=== PATIENT | female | born 1995 | race Caucasian/White ===

== ENCOUNTER → 2019-05-04 | Outpatient (REF) | payer OTHER | LOC: M LAB REF 11:21 | PROVIDERS: ATTEND Advanced Practice Midwife | DX: Z12.4 Encounter for screening for malignant neoplasm of cervix (principal) ==

== ENCOUNTER 2019-06-01 10:33 | Emergency (ER) | payer OTHER ==
[~2019-06-01] VITALS: Ht 157.5 cm; Wt 54.7 kg
[2019-06-01 11:23] LABS: BASO % 0.4 % (0.0-1.0); EOS # 0.4 10^3/uL (0.0-0.50); EOS % 4.5 % (0.0-3.0); HEMATOCRIT 38.5 % (36.0-47.0); HEMOGLOBIN 13.2 g/dl (12.0-15.5); LYMPH # 2.8 10^3/uL (1.5-6.5); LYMPH % 34.3 % (24.0-44.0); MEAN CORPUSCULAR HEMOGLOBIN 30.4 pg (27.0-33.0); MEAN CORPUSCULAR HGB CONC 34.3 g/dl (32.0-36.5); MEAN CORPUSCULAR VOLUME 88.7 fl (80.0-96.0); MONO # 0.5 10^3/uL (0.0-0.8); MONO % 6.4 % (0.0-5.0); NEUTROPHILS # 4.4 10^3/uL (1.8-7.7); NEUTROPHILS % 54.2 % (36.0-66.0); PLATELET COUNT, AUTOMATED 232 10^3/uL (150-450); RED BLOOD COUNT 4.34 10^6/uL (4.00-5.40); WHITE BLOOD COUNT 8.1 10^3/uL (4.0-10.0)
[2019-06-01] MEDS ORDERED: NS 1,000 ML IV ONE (14:30)
[2019-06-01] MEDS ORDERED: KEFL500C17 PO (15:06)
[2019-06-01 15:46] VITALS: BP 117/69
--- NOTE | 2019-06-01 19:34 | REP ---
FIRST TRIMESTER ULTRASOUND: Real-time sonographic evaluation of the gravid uterus is performed utilizing transabdominal and endovaginal technique. There is a single living intrauterine gestation. The estimated gestational age is 6 weeks based on a crown-rump length of 3 mm. EDC 01/25/2020. heart 96 beats per minute. Subchorionic hemorrhage is noted measuring 2.2 x 1.4 x 1.1 cm. Cystic structure in the right ovary probably represents a corpus luteum, complex measuring 2.4 cm maximally. There is no torsion. Moderate free fluid is seen right greater than left. Electronically Signed by Tam Monte MD 06/04/2019 11:30 A
== END 2019-06-01 16:06 | disposition home or self-care (01) ==
LOC: M ED 10:33
DX: O20.8 Other hemorrhage in early pregnancy (principal); O23.41 Unspecified infection of urinary tract in pregnancy, first trimester; O34.81 Maternal care for other abnormalities of pelvic organs, first trimester; N83.201 Unspecified ovarian cyst, right side; Z3A.01 Less than 8 weeks gestation of pregnancy

== ENCOUNTER → 2019-06-05 | Outpatient (CLI) | payer OTHER ==
[~2019-06-05] MED LIST: KEFL500C17 PO
--- NOTE | 2019-06-05 15:55 | REP ---
REASON: Subchorionic hemorrhage. COMPARISON: 06/01/2012 which showed a 2.2 x 1.4 x 1.1 cm sized subchorionic hemorrhage. A 2.4 cm sized corpus luteum cyst was also seen on the right. Transvesical and transvaginal imaging was obtained. Today's examination shows a single living intrauterine gestation the mean crown-rump length measurement of which is consistent with a 5 week 6 day gestational age. Doppler interrogation of the heart shows a heart rate of 122 beats per minute. Once again, decreased echoes are seen adjacent to the developing chorion today measuring 1.9 x 1.4 x 2.7 cm. Evaluation of the maternal adnexal spaces shows no abnormalities or significant changes from the prior exam. A corpus luteum cyst is again seen. IMPRESSION: Early OB ultrasound and subchorionic hemorrhage with right corpus luteum cyst as described above. Electronically Signed by Cristóbal Zambrano DO 06/05/2019 05:10 P
== END ==
LOC: M RAD 10:14
PROVIDERS: ATTEND Advanced Practice Midwife
DX: Z34.81 Encounter for supervision of other normal pregnancy, first trimester (principal)

== ENCOUNTER → 2019-06-18 | Outpatient (REF) | payer OTHER | LOC: M LAB REF 12:50 | PROVIDERS: ATTEND Physician Assistant | DX: R30.0 Dysuria (principal) ==

== ENCOUNTER → 2019-06-29 | Outpatient (REF) | payer OTHER | LOC: M LAB REF 13:06 | PROVIDERS: ATTEND Advanced Practice Midwife | DX: R30.0 Dysuria (principal) ==

== ENCOUNTER → 2019-07-04 | Outpatient (CLI) | payer OTHER ==
[2019-07-04 13:41] LABS: BASO % 0.2 % (0.0-1.0); EOS # 0.1 10^3/uL (0.0-0.5); EOS % 1.7 % (0.0-3.0); HEMATOCRIT 37.2 % (36.0-47.0); HEMOGLOBIN 12.7 g/dl (12.0-15.5); LYMPH # 2.7 10^3/uL (1.5-5.0); MEAN CORPUSCULAR HEMOGLOBIN 29.4 pg (27.0-33.0); MEAN CORPUSCULAR HGB CONC 34.1 g/dl (32.0-36.5); MEAN CORPUSCULAR VOLUME 86.1 fl (80.0-96.0); MONO # 0.7 10^3/uL (0.0-0.8); MONO % 7.9 % (0.0-5.0); NEUTROPHILS # 4.9 10^3/uL (1.5-8.5); PLATELET COUNT, AUTOMATED 267 10^3/uL (150-450); RED BLOOD COUNT 4.32 10^6/uL (4.00-5.40); WHITE BLOOD COUNT 8.4 10^3/uL (4.0-10.0)
[2019-07-04 14:35] LABS: HEPATITIS C VIRUS ABY INDEX 0.1 INDEX (<0.8); HIV 1&2 SCREEN CENTAUR NEGATIVE (NEGATIVE); RUBELLA IgG QUALITATIVE IMMUNE (IMMUNE)
[2019-07-04 16:35] LABS: CHLAMYDIA DNA AMPLIFICATION NEGATIVE (NEGATIVE); GC DNA AMPLIFICATION NEGATIVE (NEGATIVE)
== END ==
LOC: M SMT 09:22
PROVIDERS: ATTEND Advanced Practice Midwife
DX: Z34.81 Encounter for supervision of other normal pregnancy, first trimester (principal); Z36.89 Encounter for other specified antenatal screening

== ENCOUNTER → 2019-07-09 | Outpatient (CLI) | payer OTHER | LOC: M SMT 10:24 | PROVIDERS: ATTEND Advanced Practice Midwife | DX: Z34.81 Encounter for supervision of other normal pregnancy, first trimester (principal); Z3A.00 Weeks of gestation of pregnancy not specified ==

== ENCOUNTER → 2019-07-25 | Outpatient (REF) | payer OTHER | LOC: M LAB REF 17:05 | PROVIDERS: ATTEND Advanced Practice Midwife | DX: Z34.82 Encounter for supervision of other normal pregnancy, second trimester (principal); Z3A.00 Weeks of gestation of pregnancy not specified ==

== ENCOUNTER → 2019-08-31 | Outpatient (CLI) | payer OTHER ==
--- NOTE | 2019-08-31 08:30 | REP ---
Obstetric ultrasound for anatomy: There is a single intrauterine gestation in a vertex presentation. There is movement and cardiac activity. The heart rate is 150 beats per minute. The placenta is posterior. There is no previa or abruptio. The placenta is grade zero. The amniotic fluid volume subjectively is normal. The cervix measures 3.7 cm length. Gestational age by today's ultrasound is 19 weeks 3 days/ANDREW 01/22/2020. Gestational age by the first ultrasound is 19-week 0 days/ANDREW 01/25/2020. Gestational age by LMP is 18 weeks 2 days/ANDREW 01/30/2020. weight is 279 grams/0 pounds, 9 ounces. This is the 82nd percentile for 18 weeks 2 days. The following anatomic structures are identified and are unremarkable: Cranium, choroid plexus, cavum septum pellucidum, cerebellum, facial profile, face, upper lip, four-chamber heart, cardiac right and left ventricular outflow tracts, diaphragm, stomach, cord insertion, three-vessel cord, kidneys, bladder, spine and upper lower extremities. No anomalies are identified. Electronically Signed by Tam Walker MD 08/31/2019 08:22 A
== END ==
LOC: M RAD 07:05
PROVIDERS: ATTEND Advanced Practice Midwife
DX: Z34.02 Encounter for supervision of normal first pregnancy, second trimester (principal); Z3A.18 18 weeks gestation of pregnancy

== ENCOUNTER 2020-11-12 12:39 | Emergency (ER) | payer OTHER ==
[~2020-11-12] VITALS: Ht 157.5 cm; Wt 57.3 kg
[2020-11-12] MEDS ORDERED: PRENTAB53 PO (12:47)
--- OUTSIDE RECORDS SUMMARY | 2020-11-12 12:47 | CCD ---
Author Author [facility] Address Unknown Phone Unavailable Support Name Relationship Address Phone UE Next Of Kin Unknown Unavailable SANDRA CAROLINA Next Of Kin [address] [place], [place] [id number] Re-disclosure Warning The records that you are about to access may contain information from federally-assisted alcohol or drug abuse programs. If such information is present, then the following federally mandated warning applies: This information has been disclosed to you from records protected by federal confidentiality rules (42 CFR part 2). The federal rules prohibit you from making any further disclosure of this information unless further disclosure is expressly permitted by the written consent of the person to whom it pertains or as otherwise permitted by 42 CFR part 2. A general authorization for the release of medical or other information is NOT sufficient for this purpose. The Federal rules restrict any use of the information to criminally investigate or prosecute any alcohol or drug abuse patient.The records that you are about to access may contain highly sensitive health information, the redisclosure of which is protected by Article 27-F of the [facility] Public Health law. If you continue you may have access to information: Regarding HIV / AIDS; Provided by facilities licensed or operated by the [facility] Office of Mental Health; or Provided by the [facility] Office for People With Developmental Disabilities. If such information is present, then the following [facility] mandated warning applies: This information has been disclosed to you from confidential records which are protected by state law. State law prohibits you from making any further disclosure of this information without the specific written consent of the person to whom it pertains, or as otherwise permitted by law. Any unauthorized further disclosure in violation of state law may result in a fine or fpc sentence or both. A general authorization for the release of medical or other information is NOT sufficient authorization for further disc losure. Family History Family Member Name Family Member Gender Family Member Status Date o f Status Description Data Source(s) Unknown Male Problem [facility] ([facility]) Encounters Encounter Providers Location Date Indications Data Source(s ) Outpatient 09/14/2019 10:19:[address] [facility] Rad[facility] Insurance Providers Payer name Policy type / Coverage type Policy ID Covered green party ID Covered green party's relationship to danielle Policy Danielle Plan Information [facility] [id number] SP [id number] [facility] O [id number] S [id number] [facility] [id number] Usp AT [facility] Health Maintenance Organization (HMO) [id number] [facility] [id number]
--- OUTSIDE RECORDS SUMMARY | 2020-11-12 13:15 | CCD ---
Author Author [facility] Address Unknown Phone Unavailable Support Name Relationship Address Phone UE Next Of Kin Unknown Unavailable SANDRA CAROLINA Next Of Kin [address] [place], [place] [phone] Re-disclosure Warning The records that you are [...] is protected by Article 27-F of the [facility] Public Health law. If you continue you may have access to information: Regarding HIV / AIDS; Provided by facilities licensed or operated by the [facility] Office of Mental Health; or Provided by the [facility] Office for People With Developmental Disabilities. If such information is present, then the following [facility] mandated warning applies: This information has been [...] law may result in a fine or chcf sentence or both. A general authorization for the release of medical or other information is NOT sufficient authorization for further disc losure. Family History Family Member Name Family Member Gender Family Member Status Date o f Status Description Data Source(s) Unknown Male Problem [facility] ([facility]) Encounters Encounter Providers Location Date Indications Data Source(s ) Outpatient 09/14/2019 10:19:00 PM [facility] Insurance Providers Payer name Policy type / Coverage type Policy ID Covered alliance party ID Covered alliance party's relationship to danielle Policy Danielle Plan Information [facility] [id number] [facility] [id number] [facility] [id number] [facility] [id number] [facility] [id number] [facility] [id number] S [id number] [facility] [id number] [facility] Health Maintenance Organization (HMO) [id number] [facility] [id number]
[2020-11-12 13:42] LABS: BASO % 0.3 % (0.0-1.0); EOS # 0.3 10^3/uL (0.0-0.5); EOS % 3.7 % (0.0-3.0); HEMATOCRIT 37.3 % (36.0-47.0); HEMOGLOBIN 12.6 g/dl (12.0-15.5); LYMPH # 2.9 10^3/uL (1.5-5.0); LYMPH % 31.4 % (24.0-44.0); MEAN CORPUSCULAR HEMOGLOBIN 29.3 pg (27.0-33.0); MEAN CORPUSCULAR HGB CONC 33.8 g/dl (32.0-36.5); MEAN CORPUSCULAR VOLUME 86.7 fl (80.0-96.0); MONO # 0.6 10^3/uL (0.0-0.8); MONO % 6.7 % (0.0-5.0); NEUTROPHILS # 5.3 10^3/uL (1.5-8.5); NEUTROPHILS % 57.7 % (36.0-66.0); PLATELET COUNT, AUTOMATED 263 10^3/uL (150-450); WHITE BLOOD COUNT 9.2 10^3/uL (4.0-10.0)
--- NOTE | 2020-11-12 14:18 | REP ---
INDICATION: cramping, 6 wks . COMPARISON: None. TECHNIQUE: Transabdominal and transvaginal scanning. FINDINGS: There is a gestational sac in the uterus with a small yolk sac. An embryonic pole is felt to be visible 3 mm in greatest length. This would correspond with a 5 weeks 6 days gestation. No cardiac activity could be detected although it may be too early to rely on this sign. No free fluid is seen. There is a 2.7 cm hypoechoic area in the maternal right ovary consistent with corpus luteum. Right ovary measures 3.0 x 2.3 x 3.7 cm. Left ovarian dimensions are 2.0 x 3.1 x 2.4 cm. IMPRESSION: Intrauterine gestation containing a yolk sac and a tiny embryonic pole. No observable cardiac activity although embryonic pole is less than 6 weeks size. viability cannot be confirmed. Clinical and sonographic follow-up are recommended. Five weeks 6 days size by crown-rump length, ANDREW July 06, 2021. <Electronically signed by Wenceslao Mcelroy > 11/12/20 [id number]
[2020-11-12 15:01] VITALS: BP 125/68
== END 2020-11-12 15:03 | disposition home or self-care (01) ==
LOC: M ED 12:39
DX: O26.899 Other specified pregnancy related conditions, unspecified trimester (principal); R10.2 Pelvic and perineal pain; M54.5 Low back pain; Z3A.01 Less than 8 weeks gestation of pregnancy; Z79.899 Other long term (current) drug therapy

== ENCOUNTER 2021-04-11 13:06 | Inpatient (IN) | payer OTHER ==
[2021-04-11] VITALS (8 sets, daily range): BP systolic 90–114; BP diastolic 46–55
[~2021-04-11] VITALS: Ht 157.5 cm; Wt 68.3 kg
[~2021-04-11 13:06] MED LIST changes: +PRENTAB53 PO
[2021-04-11] MEDS ORDERED: LR 1,000 ML IV ONE (13:50)
[2021-04-11] MEDS ORDERED: LR 1,000 ML IV SCH ×2 (13:50→18:20)
[2021-04-11 14:27] LABS: HEMOGLOBIN 11.3 g/dl (12.0-15.5); MEAN CORPUSCULAR HEMOGLOBIN 30.5 pg (27.0-33.0); MEAN CORPUSCULAR HGB CONC 34.2 g/dl (32.0-36.5); MEAN CORPUSCULAR VOLUME 89.2 fl (80.0-96.0); PLATELET COUNT, AUTOMATED 236 10^3/uL (150-450); WHITE BLOOD COUNT 17.3 10^3/uL (4.0-10.0)
[2021-04-11 14:57] LABS: ALBUMIN 2.7 GM/DL (3.2-5.2); ALT/SGPT 18 U/L (12-78); BILIRUBIN,TOTAL 0.4 MG/DL (0.2-1.0); BLOOD UREA NITROGEN 10 MG/DL (7-18); CALCIUM LEVEL 8.7 MG/DL (8.5-10.1); CARBON DIOXIDE LEVEL 23 MEQ/L (21-32); CHLORIDE LEVEL 103 MEQ/L (98-107); CREATININE FOR GFR 0.43 MG/DL (0.55-1.30); GLOMERULAR FILTRATION RATE > 60.0 (>60); GLUCOSE, FASTING 75 MG/DL (70-100); POTASSIUM SERUM 3.4 MEQ/L (3.5-5.1); SODIUM LEVEL 135 MEQ/L (136-145); TOTAL PROTEIN 6.4 GM/DL (6.4-8.2)
--- NOTE | 2021-04-11 15:23 | REP ---
INDICATION: RLQ pain. Please assess appendix. .. COMPARISON: None. TECHNIQUE: Right lower quadrant ultrasound assess for appendicitis FINDINGS: Ultrasonographic evaluation of the right lower quadrant fail to identify the appendix. There is no evidence of free fluid. IMPRESSION: Acute appendicitis can not be ruled out. The appendix was not visualized. <Electronically signed by Cristóbal Zambrano > 04/11/21 [id number]
--- NOTE | 2021-04-11 15:28 | REP ---
INDICATION: RAMIRO, placenta location, cervical length.. COMPARISON: None. TECHNIQUE: Transabdominal scanning FINDINGS: Multiple ultrasonographic images of the gravid uterus shows a single living intrauterine gestation in the cephalic presentation. Doppler interrogation of the heart shows a heart rate of 169 beats per minute. The subjective amniotic fluid volume is within normal limits. The calculated amniotic fluid index is 17.0. Doppler interrogation of the umbilical artery shows an AB ratio of 2.78. The cervix measures 3.7 cm in length and is closed. The placenta is anterior and not low-lying. IMPRESSION: Limited OB ultrasound as described above. <Electronically signed by Cristóbal Zambrano > 04/11/21 [id number]
[2021-04-11 16:02] LABS: CHLAMYDIA DNA AMPLIFICATION NEGATIVE (NEGATIVE); GC DNA AMPLIFICATION NEGATIVE (NEGATIVE)
[2021-04-11] MEDS: NS 1,000 ML IV SCH (18:46)
[2021-04-11] MEDS: ACETAMINOPHEN 500 MG TAB PO PRN (18:46)
--- NOTE | 2021-04-11 18:56 | HPEPDOC ---
Obstetrical History & Physical General Date of Admission History of Present Illness 25 yo at 27+5 weeks gestation presented to L&D today with the complaint of lower pelvic pain, back pain, nausea, and anorexia. She reports symptoms just started this AM. She was in her usual state of health yesterday. She denies any recent travel, fevers/chills, SOB, chest pain. She does endorse urinary frequency though she is unsure whether this is simply related to being . She denies any vaginal bleeding or leakage of fluid. She said she had heavier discharge a week ago but this has since resolved. She endorses fe eling movement. Chief Complaint: Contractions, pre-term Information Provided By: Patient Age: 25 : 2 Term: 1 Pre-term: 0 Abortions: 0 Livin Care Care: Good Care Dating Final EDC: Jul 06, 2021 Final EDC for Daily Update: Jul 06, 2021 Final EDC by: LMP (LMP of [id number] set ANDREW of [id number]) Antepartum Course Diagnos(e)s Varicella non immune GDMA1 last GBS in urine first trimester s/p treatment Past Medical History Past Obstetrical History : Past Obstetrical History: Multigravida (G1 - at term in Jan 2020) Type of Delivery: Spontaneous Vaginal Del. 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 History: No pertinent history Past Medical History Surgical History: Denies/None Family History Significant Family History: No pertinent family hx Social History Marital Status: Family situation: Spouse/partner home Psychosocial History: No pertinent psych hx * Smoker: non-smoker Alcohol: Denies Drugs: denies Imunizations Tdap status: needs Influenza Status: needs Allergies Coded Allergies: Apricot (Verified Adverse Reaction, Mild, diarrhea, 04/11/21) Medications Scheduled Vit,Calc76/Iron/Folic (Prenatabs Rx Tablet) 1 Each Tablet, 1 TAB PO DAILY Physical Examination Physical Examination Chaperoned by L&D RN GENERAL: Alert and oriented times three. ABDOMEN: Gravid. No fundal tenderness. Tenderness to palpation in lower quadrants, especially in RLQ. There is some rebound tenderness and guarding. FETUS: Is vertex (VTX) by Lexa's and formal TAUS. HEART RATE: Tachycardic in the 110s. Regular rhythm. LUNGS: Clear to auscultation (CTA). EXTREMITIES: No edema. No clonus. PELVIC: Normal external genitalia. Speculum inserted into the vagina. No foul odor. Scant, physiologic discharge. Negative pooling. Negative leak with valsalva. No herpetic lesions on cervix or on vagina. No lesions anywhere. Cervix: cl/thick/high, posterior to digital exam and unchanged approximately 4 hours later. Vital Signs/I&O Vital Signs Date Time Temp Pulse Resp B/P (MAP) Pulse Ox O2 Delivery O2 Flow Rate FiO2 04/11/21 15:41 100.5 113 20 114/54 (74) 04/11/21 13:26 97 Laboratory Data 24H LABS Laboratory Tests 2 04/11/21 14:06: Chlamydia trachomatis DNA ([facility]) NEGATIVE, Neisseria gonorrhoeae DNA ([facility]) NEGATIVE 04/11/21 14:07: Nucleated Red Blood Cells % (auto) 0.0, Urine Color YELLOW, Urine Appearance LISA UDYH, Urine pH 9.0, Urine Specific [place] 1.014, Urine Protein NEGATIVE, Urine Glucose (UA) NEGATIVE, Urine Ketones NEGATIVE, Urine Blood NEGATIVE, Urine Nitrite NEGATIVE, Urine Bilirubin NEGATIVE, Urine Urobilinogen 0.2, Urine Leukocyte Esterase NEGATIVE, Urine WBC (Auto) 1, Urine RBC (Auto) 0, Urine Hyaline Casts (Auto) 0, Urine Bacteria (Auto) 1+H, Urine Squamous Epithelial Cells 0, Urine Amorphous Sediment SMALLH, Urine Mucus (Auto) SMALL, Urine Sperm (Auto) , Anion Gap 9, Glomerular Filtration Rate > 60.0, Calcium Level 8.7, Total Bilirubin 0.4, Aspartate Amino Transf (AST/SGOT) 19, Alanine Aminotransferase (ALT/SGPT) 18, Alkaline Phosphatase 76, Total Protein 6.4, Albumin 2.7L, Albumin/Globulin Ratio 0.7L, Coronavirus (COVID-19)(PCR) NEGATIVE CBC/BMP Laboratory Tests 04/11/21 14:07 Microbiology Microbiology 04/11/21 Blood Culture, Received Pending 04/11/21 Urine Culture, Received Pending Urine Culture: Other (50,000 - 100,000 mixed luan with 7,000 cfu of GBS) Pertinent Laboratoy Data Blood Type: B+ RBC Antibody Screen: Negative HIV: Negative Hepatitis B: Negative Hepatitis C: Unknown Rapid Plasma Reagin: Nonreactive Rubella: Immune Varicella: Nonreactive Chlamydia/Gonorrhea: Negative Group B Streptococcus: Positive (7,000 cfu GBS in urine in Nov 2020) Quad Screen Test: Declined Cystic Fibrosis: Declined Glucose Tolerance Test: 134 (early 1hr GTT 134) Anatomy Ultrasound Ultrasound Date: Feb 17, 2021 Placenta Location: Anterior Normal Anatomy: Yes Placenta Previa: No Vaginal Examination Dilation: None Effacement: 30% Cervical Consistency: Firm Cervical Position: Posterior Presentation: Cephalic presentation Position: Vertex (occiput) Assessment Heart Rate (FHR): 155 Variability: Moderate Accelerations: Positive Decelerations: None Tocometer Contractions: Yes Frequency: regular Assessment/Plan Assessment 25 yo at 27+5 weeks gestation presented to L&D with pelvic pain, back pain, contractions, nausea, and anorexia. Noted to have a fever upon arrival. Plan Appendicitis, UTI/Pyelonephritis, and intra amniotic infection appear to be highest on the differential. Spontaneous labor seems unlikely at this time as her cervix has remained closed and thick during exams ~4 hours apart. She has had a temporal fever as high as 101.8. Oral temp was 98.3. However, she has persistently had temporal temperatures >100.4. Fever workup initiated. WBC is elevated ay 17.3. Urinalysis was not overtly impressive with negative nitrites, 1 WBC, and 1+ bacteria. Urine GC/CT negative. No evidence of herpetic lesions on pelvic exam. COVID test negative. She is non toxic appearing, though she endorses not having an appetite. Formal abdominal US was unsuccessfully in being able to visualize the appendix. An MRI was thus ordered and completed. We are awaiting results to rule out appendicitis. Amniotic fluid index 17 on formal obstetric US. Infant cephalic. Placenta anterior and normal appearing. She has received continuous IV fluids. Contractions regular on tocometer. There have been periods of tachycardia on the tracing, though there is overall moderate variability, +accels, and no decels. Will start broad spectrum IV ABX to cover for potential UTI/pyelo, appendicitis, or intra amniotic infection. Blood and urine cultures sent before antibiotics were initiated. Scheduled tylenol ordered. Continuous monitoring. If symptoms don't improve with IV antibiotics, she develops fundal tenderness, or if there is persistent tachycardia, will consider amniocentesis to assess for chorioamnionitis and/or transfer to [place] for NICU care should delivery become indicated. All patient questions answered. JANINA Davidson. DO Apr 11, 2021 18:56
[2021-04-11] MEDS: PIPERACILLIN/TAZOBACTAM SOD 3.375 GM in D5W MINI-BAG PLUS 50 ML IV SCH (18:57)
--- NOTE | 2021-04-11 19:05 | REPVR ---
PROCEDURE INFORMATION: Exam: MR Abdomen Without Contrast Exam date and time: 04/11/2021 5:23 PM Age: 25 years old Clinical indication: Abdominal pain; Acute; Patient HX: Rlq pain. . Concern for appendicitis. TECHNIQUE: Imaging protocol: MR of the abdomen without contrast. COMPARISON: Abdomen, limited US 04/11/2021 3:03 PM FINDINGS: Kidneys and ureters: There is moderate hydronephrosis of the right collecting system and dilatation of the right ureter probably the result of hydronephrosis of . There is a small amount of urine in the urinary bladder. Placenta is anterior and there is no previa. There is evidence of stool in the right colon. The appendix is difficult to identify with certainty. However, there is no evidence of inflammation in the right lower quadrant. Reproductive: An intrauterine gestational sac is identified and the fetus is vertex near term. No abnormality is identified. IMPRESSION: 1. No evidence of inflammation in the region of the cecum. The appendix cannot be identified with certainty. 2. Intrauterine gestational sac with a fetus vertex near term. 3. Moderate hydronephrosis of the right collecting system consistent with moderate right hydronephrosis of . Electronically signed by: Deandre Delgado On 04/11/2021 19:05:19 PM
[2021-04-11 19:13] LABS: AMPHETAMINES URINE REFLEX NEGATIVE (NEGATIVE); BARBITURATES URINE REFLEX NEGATIVE (NEGATIVE); BENZODIAZEPINES URINE REFLEX NEGATIVE (NEGATIVE); CANNABINOIDS URINE REFLEX NEGATIVE (NEGATIVE); COCAINE METABOLITE URINE REFLE NEGATIVE (NEGATIVE); METHADONE URINE REFLEX NEGATIVE (NEGATIVE); OPIATES URINE REFLEX NEGATIVE (NEGATIVE); PHENCYCLIDINE URINE REFLEX NEGATIVE (NEGATIVE)
[2021-04-11] MEDS ORDERED: CALCIUM CARBONATE 500 MG CHEW U/D PO PRN (19:45)
[2021-04-11] MEDS ORDERED: ONDANSETRON 4MG/2ML VIAL IV PRN (19:45)
[2021-04-11] MEDS: FAMOTIDINE 20 MG TAB PO SCH (20:06)
[2021-04-12] VITALS (16 sets, daily range): BP systolic 89–123; BP diastolic 43–75
[2021-04-12] MEDS: PIPERACILLIN/TAZOBACTAM SOD 3.375 GM in D5W MINI-BAG PLUS 50 ML IV SCH ×4 (01:00→18:42)
[2021-04-12] MEDS: NS 1,000 ML IV SCH ×3 (01:00→16:30)
[2021-04-12] MEDS: ACETAMINOPHEN 500 MG TAB PO PRN ×4 (01:10→20:36)
--- NOTE | 2021-04-12 09:08 | IPNPDOC ---
Text Note Date of Service The patient was seen on 04/12/21. NOTE Patient seen this AM. Yvrose reports feeling improvement as compared to yesterday. She still has lower pelvic and back pain, but it isn't nearly as bad as yesterday. She is ambulating, voiding, and tolerating a regular diet without issues. Vitals - temp 98.1, normotensive, non tachycardic. Last fever at ~0200 today to 101.6 General - sitting up in bed, pleasant and conversant, NAD Abdomen - Gravid uterus, no fundal tenderness Extremities - No edema FHR tracing - Cat I and appropriate for gestational age. Moderate variability, +accels, no decels. No further tachycardia. Labs: Urine and blood cultures pending. Pending AM CBC Rads: MRI --> no evidence of acute appendicitis. Physiologic hydronephrosis of right kidney. Differential still includes UTI/pyelo vs chorioamnionitis. Chorioamnionitis appears less likely given her intact membranes and reassuring status, though it is still possible. Will continue zosyn as written. Continue tylenol for pain/fever. If fevers continue to spike will repeat blood cultures. Will test for influenza as well. Continue IV fluids. All patient questions answered. Arthur VSGuy, I+O VSGuy I+O Laboratory Tests 04/11/21 14:07 Vital Signs Date Time Temp Pulse Resp B/P (MAP) Pulse Ox O2 Delivery O2 Flow Rate FiO2 04/12/21 07:15 98.1 96 18 107/60 (76) 97 Room Air I&O- Last 24 Hours up to 6 AM 04/12/21 05:59 Intake Total 1267 ml Output Total 2100 ml Balance -833 ml JANINA FELIX DO Apr 12, 2021 09:08
[2021-04-12 10:14] LABS: HEMATOCRIT 28.7 % (36.0-47.0); HEMOGLOBIN 9.6 g/dl (12.0-15.5); MEAN CORPUSCULAR HEMOGLOBIN 30.1 pg (27.0-33.0); MEAN CORPUSCULAR HGB CONC 33.4 g/dl (32.0-36.5); PLATELET COUNT, AUTOMATED 180 10^3/uL (150-450); RED BLOOD COUNT 3.19 10^6/uL (4.00-5.40); WHITE BLOOD COUNT 10.4 10^3/uL (4.0-10.0)
[2021-04-12 10:22] LABS: INFLUENZA A AMPLIFICATION NEGATIVE (NEGATIVE); INFLUENZA B AMPLIFICATION NEGATIVE (NEGATIVE)
--- NOTE | 2021-04-12 17:06 | IPNPDOC ---
Text Note Date of Service The patient was seen on 04/12/21. NOTE Patient seen and examined at the bedside. Yvrose reports feeling significantly improved. She has minimal pain. She has a normal appetite and is tolerating a regular diet. She denies any fevers/chills, SOB, chest pain, dysuria, or n/v. She also denies any vaginal bleeding, leakage of fluid, foul discharge, or contractions. She endorses regular movement. Vitals - VSS, afebrile since 0200 on 12Apr2021. Normotensive. Non tachycardic. General - AAOX3, sitting up in bed, pleasant and conversant, NAD Abdomen - Gravid uterus, no fundal tenderness. Extremities - No edema. UO - excellent FHR tracing - Cat I and appropriate for gestational age. Moderate variability, +accels, no decels. No ctx on toco. Labs: urine culture - contaminated. Called lab and they reported >10,000 strep species, >10,000 staph species, and >10,000 lactobacillus species Blood culture - No growth after 24 hours WBC count - 10. Down from 17. Influenza A/B - negative Yvrose has shown marked clinical improvement. She denies any pain. Infectious cause of fever still seems most likely given her elevated WBC count and response to abx. She has no clinical signs/symptoms of intra amniotic infection. However, if she continues to fever, develops fundal tenderness, and/or develops persistent tachycardia, I would consider transfer to [place] for presumed chorioamnionitis with need for delivery. Would also consider amniocentesis. Autoimmune syndrome as cause of fever is also on the differential, though this seems less likely. Plan will be to continue IV abx for 24-48 hours afebrile. Will re initiate workup if she has another fever. All patient questions answered. Guy Augustin, I+O VSGuy, I+O Laboratory Tests 04/12/21 10:04 Vital Signs Date Time Temp Pulse Resp B/P (MAP) Pulse Ox O2 Delivery O2 Flow Rate FiO2 04/12/21 16:29 99.1 89 18 97/50 (66) 04/12/21 07:15 97 Room Air I&O- Last 24 Hours up to 6 AM 04/12/21 06:00 Intake Total 1267 ml Output Total 2100 ml Balance -833 ml JANINA FELIX DO Apr 12, 2021 17:06
[2021-04-12] MEDS: FAMOTIDINE 20 MG TAB PO SCH (20:36)
[2021-04-13] MEDS: NS 1,000 ML IV SCH ×2 (01:06→10:32)
[2021-04-13] MEDS: PIPERACILLIN/TAZOBACTAM SOD 3.375 GM in D5W MINI-BAG PLUS 50 ML IV SCH ×4 (01:06→18:37)
[2021-04-13 03:48] VITALS: BP 95/50
[2021-04-13 06:38] LABS: HEMATOCRIT 31.7 % (36.0-47.0); HEMOGLOBIN 10.5 g/dl (12.0-15.5); MEAN CORPUSCULAR HEMOGLOBIN 30.3 pg (27.0-33.0); MEAN CORPUSCULAR HGB CONC 33.1 g/dl (32.0-36.5); MEAN CORPUSCULAR VOLUME 91.4 fl (80.0-96.0); PLATELET COUNT, AUTOMATED 186 10^3/uL (150-450); RED BLOOD COUNT 3.47 10^6/uL (4.00-5.40)
[2021-04-13 08:08] VITALS: BP 114/66
--- NOTE | 2021-04-13 08:22 | IPNPDOC ---
Text Note Date of Service The patient was seen on 04/13/21. NOTE Yvrose reports feeling very good today. She has no complaints. She is to lerating a regular diet. She denies any pain. Vitals - VSS, afebrile since 199 on 12Nov2020, non tachycardic General - AAOX3, sitting up in bed, pleasant and conversant, NAD UO - excellent Labs: WBC - down to 9 NST - appropriate for gestational age with moderate variability, +accels, no decels Yvrose continues to improve. Continue zosyn until 24-48 hours afebrile. Still no definite source of infection, though she has responded remarkably well to treatment. All patient questions answered. Arthur VS,Guy, I+O VS, Guy, I+O Laboratory Tests 04/12/21 10:04 04/13/21 06:22 Vital Signs Date Time Temp Pulse Resp B/P (MAP) Pulse Ox O2 Delivery O2 Flow Rate FiO2 04/13/21 08:08 98.6 89 18 114/66 (82) 04/13/21 03:48 97 Room Air I&O- Last 24 Hours up to 6 AM 04/13/21 06:00 Intake Total 3266.5 ml Output Total 3525 ml Balance -258.5 ml JANINA FELIX DO Apr 13, 2021 08:22
[2021-04-13 12:09] VITALS: BP 105/60
[2021-04-13 16:02] VITALS: BP 108/61
[2021-04-13] MEDS ORDERED: SLF 3 ML SYR IV PRN (17:55)
[2021-04-13] MEDS: SLF 3 ML SYR IV SCH ×2 (18:40→20:21)
[2021-04-13] MEDS: FAMOTIDINE 20 MG TAB PO SCH (20:20)
[2021-04-13 22:00] VITALS: BP 103/88
[2021-04-14] MEDS: PIPERACILLIN/TAZOBACTAM SOD 3.375 GM in D5W MINI-BAG PLUS 50 ML IV SCH (00:50)
[2021-04-14 02:00] VITALS: BP 101/54
--- NOTE | 2021-04-14 05:05 | IPNPDOC ---
Text Note Date of Service The patient was seen on 04/14/21. NOTE Ms. Vee is a 25yo at 28+0 who presented initially for pelvic pain, low back pain, and anorexia and was found to have fever, contractions, and tachycardia on arrival. She also had an elevated WBC at 17. She had an unremarkable physical exam to include a speculum exam. Otherwise her CBC, CMP and UA were unremarkable. Her UDS, G/C, COVID, influenza, and urine culture was negative. Her blood cultures remain negative on 48h preliminary report. She had an unremarkable MRI of the pelvis and pelvic US. The appendix was not well visualized but no inflammation was appreciated. On US her RAMIRO was 17cm and the baby was cephalic. Her cervix was 3.7cm on US was C/T/H and has been unchanged on repeat exams making PTD unlikely. She was started on zosyn and her symptoms significantly improved, the contractions, the tachycardia resolved, and her fever resolved. Her last fever was 04/12/21 at 0200. This morning the patient denied any symptoms to include n/v/d, cp, sob, jeffrey, visual change, abd pain, f/c, vaginal bleeding, dc, urinary sx, lof, decreased fm, or contractions. APC 1. varicella non-immune 2. history of A1GDM 3. GBS positive urine s/p treatment EXAM GEN: AAOx3, NAD CARDS: non-tachy PULM: no increased WOB ABD: gravid, NT, ND, no R/G EXTREM: NT, neg homans, no clonus NST: 04/13/21 evening CAT I reactive no contractions ASSESSMENT Ms. Vee is a 25yo at 28+0 who presented initially for pelvic pain, low back pain, and anorexia and was found to have fever, contractions, and tachycardia on arrival. She also had an elevated WBC at 17. She had an unremarkable physical exam to include a speculum exam. Otherwise her CBC, CMP and UA were unremarkable. Her UDS, G/C, COVID, influenza, and urine culture was negative. Her blood cultures remain negative on 48h preliminary report. She had an unremarkable MRI of the pelvis and pelvic US. The appendix was not well visualized but no inflammation was appreciated. On US her RAMIRO was 17cm and the baby was cephalic. Her cervix was 3.7cm on US was C/T/H and has been unchanged on repeat exams making PTD unlikely. She was started on zosyn and her symptoms significantly improved, the contractions, the tachycardia resolved, and her fever resolved. Her last fever was 04/12/21 at 0200. She has no symptoms this morning. PLAN - will DC antibiotics as 48h afebrile and monitor for minimum of 24h - will follow up on AM CBC and blood cultures - continue VS per protocol - regular diet - encouraged ambulation Elsy VS,Guy, I+O VS, Guy, I+O Laboratory Tests 04/13/21 06:22 Vital Signs Date Time Temp Pulse Resp B/P (MAP) Pulse Ox O2 Delivery O2 Flow Rate FiO2 04/14/21 02:00 97.7 86 16 101/54 (70) 98 Room Air I&O- Last 24 Hours up to 6 AM 04/14/21 06:00 Intake Total 3022 ml Balance 3022 ml PHILIP CANTU DO Apr 14, 2021 05:05
[2021-04-14 05:58] VITALS: BP 101/60
[2021-04-14] MEDS: SLF 3 ML SYR IV SCH ×3 (06:14→22:00)
[2021-04-14 08:23] LABS: HEMATOCRIT 32.3 % (36.0-47.0); HEMOGLOBIN 10.7 g/dl (12.0-15.5); MEAN CORPUSCULAR HGB CONC 33.1 g/dl (32.0-36.5); MEAN CORPUSCULAR VOLUME 90.5 fl (80.0-96.0); PLATELET COUNT, AUTOMATED 219 10^3/uL (150-450); RED BLOOD COUNT 3.57 10^6/uL (4.00-5.40); WHITE BLOOD COUNT 7.9 10^3/uL (4.0-10.0)
[2021-04-14 10:00] VITALS: BP 110/64
[2021-04-14 14:00] VITALS: BP 102/57
[2021-04-14 17:53] VITALS: BP 106/66
[2021-04-14] MEDS: FAMOTIDINE 20 MG TAB PO SCH (20:14)
[2021-04-14 21:47] VITALS: BP 110/60
[2021-04-15 06:00] VITALS: BP 116/66
[2021-04-15] MEDS: SLF 3 ML SYR IV SCH (06:36)
[2021-04-15 06:42] LABS: HEMATOCRIT 32.1 % (36.0-47.0); HEMOGLOBIN 10.6 g/dl (12.0-15.5); MEAN CORPUSCULAR HEMOGLOBIN 29.9 pg (27.0-33.0); MEAN CORPUSCULAR VOLUME 90.7 fl (80.0-96.0); PLATELET COUNT, AUTOMATED 221 10^3/uL (150-450); RED BLOOD COUNT 3.54 10^6/uL (4.00-5.40); WHITE BLOOD COUNT 8.2 10^3/uL (4.0-10.0)
[2021-04-15] MEDS ORDERED: ACET-683 PO (06:49)
--- NOTE | 2021-04-15 07:16 | DS.PDOC ---
Discharge Summary General Date of Admission Apr 11, 2021 at 18:36 Date of Discharge Apr 15, 2021 Discharge Summary PROCEDURES PERFORMED DURING STAY: Antibiotic therapy with Zosyn. ADMITTING DIAGNOSES: 1. Pre-term Intrauterine . 2. Fever of Unknown Origin. DISCHARGE DIAGNOSES: 1. Same As Above. COMPLICATIONS/CHIEF COMPLAINT: Pelvic Pain, Low Back Pain & Anorexia. HISTORY OF PRESENT ILLNESS: Ms. Vee is a 25yo at 28+0 who presented initially for pelvic pain, low back pain, and anorexia and was found to have fever, contractions, and tachycardia on arrival. She also had an elevated WBC at 17. She had an unremarkable physical exam to include a speculum exam. Otherwise her CBC, CMP and UA were unremarkable. Her UDS, G/C, COVID, influenza, and urine culture was negative. Her blood cultures remain negative on 48h preliminary report. She had an unremarkable MRI of the pelvis and pelvic US. The appendix was not well visualized but no inflammation was appreciated. On US her RAMIRO was 17cm and the baby was cephalic. Her cervix was 3.7cm on US was C/T/H and has been unchanged on repeat exams making PTD unlikely. She was started on Zosyn and her symptoms significantly improved, the contractions, the tachycardia resolved, and her fever resolved. Her last fever was 04/12/21 at 0200. She has no symptoms on discharge. APC 1. varicella non-immune 2. history of A1GDM 3. GBS positive urine s/p treatment. HOSPITAL COURSE: Unremarkable. DISCHARGE MEDICATIONS: Please see below. ALLERGIES: Please see below. PHYSICAL EXAMINATION ON DISCHARGE: VITAL SIGNS: Please see below. GENERAL: AAox3, NAD CARDIOVASCULAR EXAMINATION: RRR RESPIRATORY EXAMINATION: CTAB ABDOMINAL EXAMINATION: Gravid uterus EXTREMITIES: No c/c/e SKIN: Normal LABORATORY DATA: Please see below. IMAGING: Pelvic MRI & Ultrasound. PROGNOSIS: Excellent. ACTIVITY: As tolerated. DIET: Regular. DISCHARGE PLAN: To Home. DISPOSITION: Stable. DISCHARGE INSTRUCTIONS: 1. Follow-up at next regularly scheduled OB appointment. ITEMS TO FOLLOWUP ON ON OUTPATIENT: 1. Evaluation. DISCHARGE CONDITION: Improved. TIME SPENT ON DISCHARGE: Greater than 10 minutes. Vital Signs/I&Os Vital Signs Date Time Temp Pulse Resp B/P (MAP) Pulse Ox O2 Delivery O2 Flow Rate FiO2 04/14/21 21:47 97.5 83 16 110/60 (77) 99 Room Air I&O- Last 24 Hours up to 6 AM 04/15/21 06:00 Intake Total 400 ml Balance 400 ml Laboratory Data Labs 24H Laboratory Tests 2 04/14/21 07:50: Nucleated Red Blood Cells % (auto) 0.0 04/15/21 06:19: Nucleated Red Blood Cells % (auto) 0.0 CBC/BMP Laboratory Tests 04/14/21 07:50 04/15/21 06:19 Microbiology Microbiology 04/11/21 Blood Culture - Preliminary, Resulted No Growth after 72 hours. All specime... 04/11/21 Urine Culture - Final, Complete Discharge Medications Scheduled Vit,Calc76/Iron/Folic (Prenatabs Rx Tablet) 1 Each Tablet, 1 TAB PO DAILY, (Reported) Scheduled PRN Acetaminophen (Acetaminophen) 500 Mg Tablet, 1,000 MG PO Q6HP PRN for MODERATE PAIN (PS 5-7) Allergies Coded Allergies: Apricot (Verified Adverse Reaction, Mild, diarrhea, 04/11/21) JUNITO BRAGA M.D. Apr 15, 2021 07:16
== END 2021-04-15 11:45 | disposition home or self-care (01) | DRG 833 ==
LOC: M LDO 13:06 → M LDI 18:36 → M OBS 04-13 17:46
PROVIDERS: ADMIT Obstetrics & Gynecology; ATTEND Obstetrics & Gynecology
DX: O26.892 Other specified pregnancy related conditions, second trimester (principal); Z20.822 Contact with and (suspected) exposure to COVID-19; O99.820 Streptococcus B carrier state complicating pregnancy; Z3A.27 27 weeks gestation of pregnancy; R50.9 Fever, unspecified; R10.2 Pelvic and perineal pain; O21.8 Other vomiting complicating pregnancy; Z91.018 Allergy to other foods; Z87.59 Personal history of other complications of pregnancy, childbirth and the puerperium